=== PATIENT | male | born 1940 | race Caucasian/White ===

== ENCOUNTER 2016-10-14 08:51 | Day surgery (SDC) | payer MEDICARE ==
[~2016-10-14] VITALS: Ht 175.3 cm; Wt 64.4 kg
[~2016-10-14 08:51] MED LIST: ASPI-973 PO; DOCU250C2 PO; INSU100I18 SUBQ; INSU100V7 SUBQ; MELO-253 PO; Sodium Chloride LOK Flush 10 mL Syringe IV PRN; fentaNYL-PF 50 mCg/mL 2 mL Inj IVPUSH PRN
[2016-10-14] MEDS ORDERED: CHOL10008 PO (09:16)
[2016-10-14] MEDS ORDERED: FERR159T2 PO (09:16)
[2016-10-14] MEDS ORDERED: ASCO100T11 PO (09:16)
[2016-10-14 09:27] VITALS: BP 130/73; PULSE 65; RESP 16; O2SAT 98
[2016-10-14] MEDS: 0.9% Sodium Chloride 1,000 ML IV SCH ×3 (09:29→10:07)
[2016-10-14 10:16] VITALS: BP 112/66; PULSE 76; RESP 14; O2SAT 98
[2016-10-14 10:26] VITALS: BP 110/66; PULSE 78; RESP 16; O2SAT 99
--- NOTE | 2016-10-14 10:30 | ENDO ---
[address] [address] ENDOSCOPY PROCEDURE PATIENT: EDUARDO RUBIO : 1940 MR#: [id number] ADMIT: 10/14/2016 JOB ID: [id number] DATE: 10/14/2016 PREOPERATIVE DIAGNOSIS(ES): Colorectal cancer screening. POSTOPERATIVE DIAGNOSIS(ES): Normal colonoscopy to cecum within limits of the prep. PROCEDURE: Colonoscopy to cecum. SURGEON: Otto Weinstein MD. INDICATIONS: A 76-year-old man who at age 65 had a normal colonoscopy. He is here for colorectal cancer screening. FINDINGS: He had a poor prep. Throughout his colon, he had pools of turbid stool with a large amount of seeds and other vegetable fibers which significantly impaired visualization. I can easily say he does not have an obvious colon cancer but he certainly might have a small colon polyp that cannot be identified. DESCRIPTION OF PROCEDURE: The procedure and sedation plan was discussed with the patient and nursing staff. A procedural time-out was held. He received 3 mg of Versed and 100 mcg of fentanyl. A digital rectal examination was performed. The Olympus PCF H 180 AL videocolonoscope was passed transanally, advanced to the cecum, withdrawn over 6 minutes and 6 seconds. But, as stated above, it was a very poor prep and visualization was significantly limited. Retroflexed views of the rectum were normal. IMPRESSION: Within the limits of his poor colon prep, it was a normal colonoscopy. There is no evidence of polyps, inflammation ulceration or diverticular disease. RECOMMENDATIONS: Repeat colonoscopy should be considered in 5-10 years. Certainly if there are any symptoms, he should have a repeat colonoscopy sooner with a two day prep.
[2016-10-14 10:36] VITALS: BP 123/74; PULSE 82; RESP 16; O2SAT 98
== END 2016-10-14 23:59 | disposition home or self-care (01) ==
LOC: END 08:51
PROVIDERS: ATTEND Surgery
DX: Z12.11 Encounter for screening for malignant neoplasm of colon (principal); I10 Essential (primary) hypertension; E11.9 Type 2 diabetes mellitus without complications; Z79.4 Long term (current) use of insulin; Z79.82 Long term (current) use of aspirin
CPT/HCPCS: G0121; G0500; J2250; J7030